=== PATIENT | male | born 1945 | race Caucasian/White ===

== ENCOUNTER 2021-11-01 11:58 | Outpatient (CLI) | payer OTHER | END 2021-11-01 12:12 | disposition home or self-care (01) | LOC: LAB 11:58 | PROVIDERS: ATTEND Radiology Diagnostic Radiology | DX: R10.84 Generalized abdominal pain (principal) ==

== ENCOUNTER 2021-11-03 09:25 | Outpatient (CLI) | payer OTHER | END 2021-11-03 09:27 | disposition home or self-care (01) | LOC: TOM 09:25 | PROVIDERS: ATTEND Surgery | DX: R10.84 Generalized abdominal pain (principal) | CPT/HCPCS: 74178; Q9965 ==